=== PATIENT | male | born 1965 | race African-American/Black ===

== ENCOUNTER → 2018-05-24 | Outpatient (CLI) | payer BC ==
[~2018-05-24] MED LIST: ATOR10TA60 PO; HYDR12.58 PO; LOSA25TA5 PO; REGADENOSON 0.4 MG/5 ML DISP.SYRIN. IV ONE
--- NOTE | 2018-05-24 12:19 | RAD ---
MR#: [id number] Date of Study: 05/24/2018 Ordering Physician: ZANDRA VELIZ, Referring Physician: MARY BOUDREAUX Tech: YASMEEN Valdez ARRT (R) (N) APPROVED REPORT Test Type: Pharmacological Stress Nurse/Tech: Debbie BRYANT Test Indications: CP, HTN Cardiac History: Hyperlipidemia, HTN Medications: ASA, See EMR Medical History: See EMR Resting ECG: SR Resting Heart Rate: 51 bpm Resting Blood Pressure: 136/68mmHg Pretest Chest Pain: No chest pain Nurse/Tech Notes Lungs CTA, Heart tones regular. Consent: The procedure was explained to the patient in lay terms. Informed consent was witnessed. Zaid eout was entered into [employer]. History and Stress Test performed by RT Kaley Gillis) (N) Pharm. Details Pharmacologic stress testing was performed using 0.4mg per 5ml of regadenoson given intravenously ove r 7-10 seconds. Stress Symptoms No chest pain or symptoms. POST EXERCISE Reason for Termination: Infusion complete Max HR: 84 bpm Max Blood Pressure: 120/69mmHg Chest Pain: No. Arrhythmia: Yes. Frequent PVCs, BBB in R stage 0:55 and R stage 01:55. ST elevation in leads II and III in these stages as weill. Both the BBB and ST elevation resolved by R stage 02:55. Pt denied an y chest pain or symptoms during the stress test. ST Change: Yes. See above note. INTERPRETATION Stress EKG Conclusion: Baseline EKG showed sinus rhythm. No ischemic changes at peak stress. No arr hythmias. Imaging Protocol IMAGE PROTOCOL: Rest Tc-99m/stress Tc-99m 1 day Rest: Stress: Viability: Radiopharm.Tc99m KtbgspzqxWv31p Sestamibi Zjlu40jVf 33mCi Img Date 05/24/2018 05/24/2018 Inj-Img Eipa01enj. 60min. Rest Admin Site:IV - Right AntecubitalAdministrator:YASMEEN Valdez ARRT (R)(N) Stress Admin Site: IV - Right AntecubitalAdministrator: Riley Holley, RT (R)(N) STRESS DATA End Diast. Vol.154.0mlLVEDV index BSA64.0ml End Syst. Vol.55.0mlLVESV index BSA23.0ml Myocardial Vcxv477.0gEject. Etuptxtu74.0% Stress Scores Regional WT1.00Summed WT15.00 Regional WM0.00Summed WM0.00 Study quality was good. Left Ventricular size was Normal at Rest and Stress. Lung uptake was . Left Ventricular ejection fraction is 64%. The rest and stress images show normal perfusion, normal contraction and thickening. LV Perf. Quant 17 Seg. SSS9.00 17 Seg. SRS7.00 17 Seg. SDS2.00 Stress Defect Extent (% LAD)2.50Rest Defect Extent (% LAD)0.00Rev. Defect Extent (% LAD)0.00 Stress Defect Extent (% LCX) 58.80Rest Defect Extent (% LCX)58.80Rev. Defect Extent (% LCX)1.30 Stress Defect Extent (% RCA)0.00Rest Defect Extent (% RCA)0.00Rev. Defect Extent (% RCA)0.00 Stress Defect Extent (% RAQUEL)15.70Rest Defect Extent (% RAQUEL)14.10Rev. Defect Extent (% RAQUEL)0.20 Conclusion 1. Regadenoson cardioisotope stress test did not show any evidence of ischemia or infarct. 2. Normal left ventricular systolic function with ejection fraction calculated at 64%. 3. Low risk for cardiac events. Signed by : Zandra Veliz, Electronically Approved : 05/24/2018 12:19:23
== END | disposition home or self-care (01) ==
LOC: NM 07:58
PROVIDERS: ATTEND Internal Medicine Cardiovascular Disease
DX: R07.9 Chest pain, unspecified (principal); E78.5 Hyperlipidemia, unspecified; I10 Essential (primary) hypertension
CPT/HCPCS: 78452; 93017; 96374; 96375; 96376; A9500; J2785

== ENCOUNTER 2018-07-06 08:19 | Outpatient (CLI) | payer BC ==
[~2018-07-06] VITALS: Ht 185.4 cm; Wt 110.7 kg
[2018-07-06] VITALS (14 sets, daily range): BP systolic 107–138; BP diastolic 68–83
[~2018-07-06 08:19] MED LIST changes: -LOSA25TA5 PO; +LOSA25TA54 PO; -REGADENOSON 0.4 MG/5 ML DISP.SYRIN. IV ONE
[2018-07-06] MEDS ORDERED: ASPI-630 PO (08:32)
[2018-07-06 09:06] LABS: HEMATOCRIT 43.8 % (39.0-53.0); HEMOGLOBIN 14.4 g/dL (13.0-17.5); RED BLOOD COUNT 5.13 x10^6/uL (4.30-5.70); RED CELL DISTRIBUTION WIDTH 13.6 % (11.5-14.5); WHITE BLOOD COUNT 5.4 x10^3/uL (4.0-11.0)
[2018-07-06] MEDS ORDERED: IODIXANOL 320 MG/ML 100 ML VIAL. ONE (09:06)
[2018-07-06] MEDS ORDERED: LIDOCAINE 1% PF 2 ML VIAL. ONE (09:06)
[2018-07-06 09:09] LABS: CREATININE 1.2 mg/dL (0.7-1.3); GFR 76.3; POTASSIUM 3.8 mmol/L (3.5-5.1)
[2018-07-06 09:14] LABS: PROTHROMBIN TIME PATIENT 12.3 SEC (11.7-14.0)
[2018-07-06] MEDS ORDERED: fentaNYL PF VIAL 100 MCG/2 ML VIAL ONE (09:22)
[2018-07-06] MEDS ORDERED: HEPARIN for IV BOLUS 10,000 UNIT/10 ML VIAL. ONE (09:22)
[2018-07-06] MEDS ORDERED: VERAPAMIL 5 MG/2 ML VIAL. ONE (09:22)
[2018-07-06] MEDS ORDERED: MIDAZOLAM HCL/PF 2 MG/2 ML VIAL. ONE (09:22)
[2018-07-06] MEDS ORDERED: NITROGLYCERIN 200 MCG/2 ML SYRINGE FOR CATH/VASC LAB. ONE (09:22)
[2018-07-06] MEDS ORDERED: LIDOCAINE 1% PF 2 ML VIAL. INJ ONE (10:00)
[2018-07-06] MEDS ORDERED: VERAPAMIL 5 MG/2 ML VIAL. IART ONE (10:00)
[2018-07-06] MEDS ORDERED: HEPARIN for IV BOLUS 10,000 UNIT/10 ML VIAL. IART ONE (10:00)
[2018-07-06] MEDS ORDERED: IODIXANOL 320 MG/ML 100 ML VIAL. IART ONE (10:00)
[2018-07-06] MEDS ORDERED: NITROGLYCERIN 200 MCG/2 ML SYRINGE FOR CATH/VASC LAB. IART ONE (10:00)
[2018-07-06] MEDS ORDERED: fentaNYL PF VIAL 100 MCG/2 ML VIAL IV ONE (10:00)
[2018-07-06] MEDS ORDERED: CONTRAST GIVEN. MC PRN (10:00)
[2018-07-06] MEDS ORDERED: MIDAZOLAM HCL/PF 2 MG/2 ML VIAL. IV ONE (10:00)
[2018-07-06] MEDS ORDERED: IV 1/2 NORMAL SALINE 1,000 ML IV SCH (10:03)
--- NOTE | 2018-07-06 10:03 | PDOC ---
MODERATE SEDATION ASSESSMENT RISKS/ALTERNATIVES Risks/Alternatives Risks and alternatives of this type of sedation and procedure discussed with: RISK/ALTERNATIVES: Patient H & P ON CHART H & P H & P on chart and reviewed for co-morbid conditions and appropriate labs. H&P ON CHART: Yes STATUS PREG STATUS ASSESSED: N/A MEDS/ALLERGIES REVIEWED Meds/Allergies Reviewed Medications and Allergies including time and route of recently administered narcotics and sedatives. MEDS/ALLERGIES REVIEWED: Yes ASA RATING ASA RATING: II AIRWAY ASSESSMENT Airway Assessment Airway patency, oral function limitations, presence of caps, crowns, dentures, partials, and ability to extend neck assessed. AIRWAY ASSESSMENT: Yes MALLAMPATI SCORE MALLAMPATI SCORE: II PRE-SEDATION ASSESSMENT PRE-SEDATION ASSESSMENT: Yes ZANDRA VELIZ MD Jul 06, 2018 10:03
--- NOTE | 2018-07-06 10:10 | CARD ---
MR#: [id number] Date of Study: 07/06/2018 Ordering Physician: ZANDRA REAVES, Referring Physician: ZANDRA REAVES Tech: RT Inge (R) APPROVED REPORT Technologist: RT Inge (R) Nurse: Moraima Mireles R.N. Procedure(s) performed: Left heart catheterization, selective coronary angiography and left ventricul ography via right transradial approach Sedation Time: 18 Minutes INDICATION The indication(s) include : Refractory chest pain concerning for unstable angina. PROCEDURE NARRATIVE After explaining the risks, benefits and alternative options, informed consent was obtained from carmen ent. Patient was brought to the cardiac Harp Regulator and right wrist was prepped and draped in the usual fashion after confirming a positive modified Murali's test. Arterial access was obtained in the righ t radial artery and a 6 [place] sheath was inserted. 6 [place] Star and 6 [place] JL 3.[address] a[address] perform selective angiography of the right and left coronary arteries. The Star catheter was a lso used to perform left ventriculography. Patient tolerated the procedure well. Hemostasis was ach ieved using TR band. There were no immediate complications. The following findings were noted. FINDINGS 1. Hemodynamics: Left ventricular end-diastolic pressure of 6 mmHg. No pullback gradient across the aortic valve. 2. Left ventriculography: Normal left ventricle systolic function with ejection fraction estimated at 60%. No significant mitral regurgitation seen. 3. Coronary angiography: a. The left main coronary artery arose from the left sinus of Valsalva, gave rise to the left anteri or descending and left circumflex arteries and did not show any significant stenosis. b. The left anterior descending artery did not show any significant stenosis. c. The left circumflex artery did not show any significant stenosis. d. The right coronary artery was a large and dominant vessel arising from the right sinus of Valsalv a that did not show any significant stenosis. Conclusion 1. No significant coronary artery disease 2. Normal left ventricular systolic function with ejection fraction estimated at 60% Signed by : Zandra Reaves, Electronically Approved : 07/06/2018 10:09:27
== END 2018-07-06 13:40 | disposition home or self-care (01) ==
LOC: CCL 08:19
PROVIDERS: ATTEND Internal Medicine Cardiovascular Disease
DX: I20.0 Unstable angina (principal); I10 Essential (primary) hypertension; E78.5 Hyperlipidemia, unspecified; Z79.899 Other long term (current) drug therapy; Z83.3 Family history of diabetes mellitus
CPT/HCPCS: 36415; 80048; 85027; 85610; 93458; 99152; C1769; C1892; J1644; J2250; J3010; J3490; Q9967

== ENCOUNTER → 2019-05-22 | Outpatient (CLI) | payer BC ==
[2018-07-06 13:26] VITALS: BP 138/82
[~2019-05-22] MED LIST changes: +ASPI-630 PO
--- NOTE | 2019-05-22 14:41 | CARD ---
MR#: [id number] Date of Study: 05/22/2019 Ordering Physician: ZANDRA VELIZ, Referring Physician: Anna BOUDREAUX: Rosalina Murphy APPROVED REPORT EXAM: Two-dimensional and M-mode echocardiogram with Doppler and color Doppler. Other Information Quality : Average INDICATION Pre-Op 2D DIMENSIONS RVDd3.6 (2.9-3.5cm)Left Atrium(2D)4.3 (1.6-4.0cm) IVSd1.3 (0.7-1.1cm)Aortic Root(2D)3.2 (2.0-3.7cm) LVDd4.0 (3.9-5.9cm)LVOT Diameter2.4 (1.8-2.4cm) PWd1.1 (0.7-1.1cm)LVDs2.0 (2.5-4.0cm) FS (%) 50.4 %SV59.0 ml Aortic Valve AoV Peak Chuck.120.4cm/sAoV VTI22.6cm AO Peak GR.5.8mmHgLVOT Peak Chuck.97.8cm/s LVOT VTI 15.95cmAO Mean GR.3mmHg JIN (VMAX)2.21an9RYW (VTI)3.16cm2 Mitral Valve MV E Ejstodhe64.4cm/sMV DECEL IRVL790by MV A Xyoxlbnf87.5cm/sMV UAE68ms E/A Ratio1.6MVA (PHT)3.14cm2 TDI E/Lateral E'4.5E/Medial E'5.4 Pulmonary Valve PV Peak Xcuctlle86.0cm/sPV Peak Grad.3mmHg Tricuspid Valve TR P. Neikskzs739zi/sRAP KWWDJNWO5peEw TR Peak Gr.58zvTnGZRW54nkKx Pulmonary Vein S1 Sxtotbzk62.2cm/sD2 Ruwrhgmg30.0cm/s PVa blliqmci806uufp LEFT VENTRICLE The left ventricle is normal size. There is borderline to mild concentric left ventricular hypertroph y. The left ventricular systolic function is normal. The ejection fraction is 55-60%. There is normal LV segmental wall motion. The left ventricular diastolic function and filling is normal for age. RIGHT VENTRICLE The right ventricle is normal size. There is normal right ventricular wall thickness. The right ventr icular systolic function is normal. ATRIA The left atrium is mildly dilated. The right atrium size is normal. The interatrial septum is intact with no evidence for an atrial septal defect or patent foramen ovale as noted on 2-D or Doppler imagi ng. AORTIC VALVE The aortic valve is calcified but opens well. Doppler and Color Flow revealed no significant aortic r egurgitation. There is no significant aortic valvular stenosis. MITRAL VALVE The mitral valve is thickened but opens well. There is no evidence of mitral valve prolapse. There is no mitral valve stenosis. Doppler and Color-flow revealed trace mitral regurgitation. TRICUSPID VALVE The tricuspid valve is normal in structure and function. Doppler and Color Flow revealed trace to mil d tricuspid regurgitation. There is no tricuspid valve stenosis. PULMONIC VALVE The pulmonic valve was not well visualized Doppler and Color Flow revealed trace to mild pulmonic arnaldo vular regurgitation. GREAT VESSELS The aortic root is normal in size. The ascending aorta is normal in size. The IVC is normal in size a nd collapses >50% with inspiration. PERICARDIAL EFFUSION There is no pleural effusion. There is no evidence of significant pericardial effusion. Critical Notification Critical Value: No <Conclusion> The left ventricle is normal size. The left ventricular systolic function is normal. The ejection fraction is 55-60%. There is borderline to mild concentric left ventricular hypertrophy. There is no significant aortic valvular stenosis. Doppler and Color Flow revealed no significant aortic regurgitation. Doppler and Color-flow revealed trace mitral regurgitation. Doppler and Color Flow revealed trace to mild tricuspid regurgitation. Signed by : Ramana Oliver MD Electronically Approved : 05/22/2019 14:40:57
== END | disposition home or self-care (01) ==
LOC: ECHO 12:47
PROVIDERS: ATTEND Internal Medicine Cardiovascular Disease
DX: Z01.810 Encounter for preprocedural cardiovascular examination (principal); I08.8 Other rheumatic multiple valve diseases; I11.9 Hypertensive heart disease without heart failure
CPT/HCPCS: 93306